=== PATIENT | male | born 1975 | race Caucasian/White ===

== ENCOUNTER 2017-08-15 22:24 | Emergency (ER) | payer OTHER ==
[~2017-08-15] VITALS: Ht 182.9 cm; Wt 111.9 kg
[2017-08-15 22:38] VITALS: BP 144/79; PULSE 97; RESP 18; TEMP 97.8; O2SAT 96
[2017-08-15 22:50] VITALS: BP 144/79; PULSE 97; RESP 18; TEMP 99.8; O2SAT 96
[2017-08-15] MEDS ORDERED: METF850T PO (23:02)
[2017-08-15] MEDS ORDERED: LISI-515 PO (23:02)
[2017-08-15] MEDS ORDERED: KETOROLAC TROMETHAMINE 60 MG/2 ML (IM) VIAL IM ONE (23:30)
[2017-08-15] MEDS ORDERED: oxyCODONE/ACETAMINOPHEN 5 MG/325 MG TAB PO ONE (23:30)
[2017-08-15] MEDS ORDERED: DEXAMETHASONE SOD PHOS 20 MG/5 ML VIAL IM ONE (23:30)
[2017-08-15 23:50] VITALS: BP 148/82; PULSE 99; RESP 18; O2SAT 96
[2017-08-16] MEDS ORDERED: PERC5TAB12 PO (00:20)
[2017-08-16] MEDS ORDERED: IBUP-232 PO (00:20)
[2017-08-16] MEDS ORDERED: MEDR4PAK PO (00:20)
--- NOTE | 2017-08-16 00:20 | PD ---
HPI Chief Complaint: Musculoskeletal Complaint Time Seen by Provider: 23:15 Travel History International Travel<30 days: No Contact w/Intl Traveler<30days: No Traveled to known affect area: No History of Present Illness HPI Patient is a 41 year old male who presents to the ER with complaints of low back pain. Patient reports that he was lifting heavy boxes at work this morning when he ended up hurting his low back. Reports that he is unsure if he pulled a muscle or has any other injuries. Patient reports that he has been having pain with ambulation due to this pain. He did work all day after his accident. Patient denies any incontinence of urine or bowel, denies any saddle anesthesia. PFSH Past Medical History Cardiovascular Problems: Yes (HTN) Diabetes: Yes Patient Takes Glucophage: Yes Medical other: Yes (Hernia, unknown if inguinal or hiatal) Influenza Vaccination: No Past Surgical History Cholecystectomy: Yes Social History Alcohol Use: Yes (Occasional) Tobacco Use: Yes (1ppd) Substance Use: No Allergies-Medications (Allergen,Severity, Reaction): Coded Allergies: No Known Allergies (Unverified , 08/15/17) Reported Meds & Prescriptions Reported Meds & Active Scripts Active Ibuprofen 600 Mg Tab 600 Mg PO Q6H PRN Percocet (Oxycodone-Acetaminophen) 5-325 mg Tab 1 Tab PO Q6H PRN Medrol Dosepak (Methylprednisolone) 4 Mg Dspk 4 Mg PO DIRECTED Per Pharmacist direction Reported Metformin (Metformin HCl) 850 Mg Tab 850 Mg PO BIDPC Lisinopril 20 Mg Tab 20 Mg PO DAILY Review of Systems General / Constitutional: No: Fever Eyes: No: Visual changes HENT: No: Headaches Cardiovascular: No: Chest Pain or Discomfort Respiratory: No: Shortness of Breath Gastrointestinal: No: Abdominal Pain, Changes in Bowel Habits Genitourinary: No: Dysuria Musculoskeletal: Positive: Pain (low back pain) Skin: No Rash Neurologic: No: Weakness Psychiatric: No: Depression Endocrine: No: Polydipsia Hematologic/Lymphatic: No: Easy Bruising Physical Exam Narrative GENERAL: Well-nourished, well-developed patient. SKIN: Focused skin assessment warm/dry. HEAD: Normocephalic. EYES: No scleral icterus. No injection or drainage. NECK: Supple, trachea midline. No JVD or lymphadenopathy. CARDIOVASCULAR: Regular rate and rhythm without murmurs, gallops, or rubs. RESPIRATORY: Breath sounds equal bilaterally. No accessory muscle use. GASTROINTESTINAL: Abdomen soft, non-tender, nondistended. MUSCULOSKELETAL: No cyanosis, or edema. Patient with lumbar paraspinal tenderness b/l BACK: Nontender without obvious deformity. No CVA tenderness. Data Data Last Documented VS Vital Signs Date Time Temp Pulse Resp B/P (MAP) Pulse Ox O2 Delivery O2 Flow Rate FiO2 08/15/17 22:54 18 08/15/17 22:50 99.8 97 144/79 (100) [address] Lumb Spine W/O Contrast (08/15/17 ) Dexamethasone Inj (Decadron Inj) (08/15/17 23:30) Oxycodone-Acetamin 5-325 Mg (Percocet (08/15/17 23:30) Ketorolac Inj (Toradol Inj) (08/15/17 23:30) MDM Medical Decision Making Medical Screen Exam Complete: Yes Emergency Medical Condition: Yes Medical Record Reviewed: Yes Interpretation(s) Vital Signs Date Time Temp Pulse Resp B/P (MAP) Pulse Ox O2 Delivery O2 Flow Rate FiO2 08/15/17 22:54 18 08/15/17 22:50 99.8 97 18 144/79 (100) 96 08/15/17 22:38 97.8 97 18 144/79 (100) 96 Differential Diagnosis slipped disc, muscle strain, spinal stenosis, degenerative disc disease, osteoarthritis, disc herniation Narrative Course CT of the lumbar spine was ordered IM Toradol, IM dexamethasone and oral dose of Percocet ordered CT of lumbar spine with no acute findings. I reviewed all studies as well as all findings with patient in detail. He will follow up with his pcp and will return to the ER as needed Diagnosis Primary Impression: Low back pain Qualified Codes: M54.40 - Lumbago with sciatica, unspecified side Patient Instructions: General Instructions, Narcotic given in the ED Additional Instructions: Please provide patient with a copy of their lab work and studies at discharge* * Please follow up with your primary care doctor in 2-3 days Return to the ER if symptoms worsen or progress Return to the ER as needed Please do not drive or operate heavy machinery while taking narcotic pain medications Med/Other Pt SpecificInfo: Prescription(s) given Scripts Ibuprofen (Ibuprofen) 600 Mg Tab 600 MG PO Q6H Y for Pain/Inflammation, #40 TAB 0 Refills Prov: Glenis Anderson DO 08/16/17 Oxycodone-Acetaminophen (Percocet) 5-325 mg Tab 1 TAB PO Q6H Y for PAIN, #12 TAB 0 Refills Prov: Glenis Anderson DO 08/16/17 Methylprednisolone Dosepak (Medrol Dosepak) 4 Mg Dspk 4 MG PO DIRECTED, #1 DSPK 0 Refills Per Pharmacist direction Prov: Glenis Anderson DO 08/16/17 Disposition: 01 DISCHARGE HOME Condition: Stable Glenis Anderson DO Aug 16, 2017 00:20
--- NOTE | 2017-08-16 00:35 | RADRPT ---
EXAM DATE/TIME: 08/15/2017 23:57 [facility] COMPARISON: No previous studies available for comparison. INDICATIONS : Low back pain from lifting boxes. RADIATION DOSE: 39.79 CTDIvol (mGy) MEDICAL HISTORY : Hypertension. SURGICAL HISTORY : Cholecystectomy. ENCOUNTER: Initial ACUITY: 1 day PAIN SCALE: 10/10 LOCATION: low back TECHNIQUE: Volumetric scanning of the lumbar spine was performed. Multiplanar reconstructions in the sagittal, coronal and oblique axial planes were performed. Using automated exposure control and adjustment of the mA and/or kV according to patient size, radiation dose was kept as low as reasonably achievable t o obtain optimal diagnostic quality images. DICOM format image data is available electronically for review and comparison. FINDINGS: VERTEBRAE: Normal vertebral body height. ALIGNMENT: No evidence of subluxation. A 1.4 cm fat-containing lesion involving the right adrenal gland. T12-L1: The thecal sac has a normal diameter. No evidence of disc bulge or protrusion. The neural foramina are patent bilaterally. L1-L2: The thecal sac has a normal diameter. No evidence of disc bulge or protrusion. The neural foramina are patent bilaterally. L2-L3: The thecal sac has a normal diameter. No evidence of disc bulge or protrusion. The neural foramina are patent bilaterally. L3-L4: The thecal sac has a normal diameter. No evidence of disc bulge or protrusion. The neural foramina are patent bilaterally. L4-L5: The thecal sac has a normal diameter. No evidence of disc bulge or protrusion. The neural foramina are patent bilaterally. L5-S1: The thecal sac has a normal diameter. No evidence of disc bulge or protrusion. The neural foramina are patent bilaterally. CONCLUSION: 1. Unremarkable exam. 2. 14 mm lipid rich right adrenal gland adenoma. Talat Bautista Jr., MD on August 16, 2017 at 0:28 Board Certified Radiologist. This report was verified electronically.
[2017-08-16 00:50] VITALS: BP 137/77
== END 2017-08-16 00:55 | disposition home or self-care (01) ==
LOC: PHED 22:24
DX: M54.5 Low back pain (principal); D35.01 Benign neoplasm of right adrenal gland; I10 Essential (primary) hypertension; E11.9 Type 2 diabetes mellitus without complications; F17.200 Nicotine dependence, unspecified, uncomplicated; Z79.899 Other long term (current) drug therapy
CPT/HCPCS: 72131; 96372; 99283; J1100; J1885

== ENCOUNTER 2017-08-19 17:04 | Emergency (ER) | payer OTHER ==
[~2017-08-19] VITALS: Ht 182.9 cm; Wt 111.5 kg
[~2017-08-19 17:04] MED LIST: IBUP-232 PO; LISI-515 PO; MEDR4PAK PO; METF850T PO; PERC5TAB12 PO
[2017-08-19 17:06] VITALS: BP 166/93; PULSE 86; RESP 16; TEMP 97.6; O2SAT 96
--- NOTE | 2017-08-19 18:04 | PD ---
HPI Chief Complaint: Back/ Neck Pain or Injury Time Seen by Provider: 17:33 Travel History International Travel<30 days: No Contact w/Intl Traveler<30days: No Traveled to known affect area: No History of Present Illness HPI 41-year-old male presents emergency department complaining of back pain that has been persistent for 3 days. Patient states that he presented to the emergency department for evaluation and was given multiple medications however, feels that he needs medication for muscle spasms. Says he try to go back to work today however, he was unable to because of the pain. He describes his pain as a turn and twist injury to his back while at work. Patient states that he was putting a box up when he turned and felt as if he twisted his back. Patient says that he has occasional radiation of pain down his left thigh however he points to his upper lumbar paraspinous muscular area for pain. Patient states that the pain is moderate in severity, worse with movement. Says the pain is constant, sharp. Denies fever, chills, loss of bowel or bladder function, saddle anesthesia, significant weakness, history of IV drug use. Denies any other inciting events. PFSH Past Medical History Cardiovascular Problems: Yes (HTN) Diabetes: Yes Patient Takes Glucophage: Yes Diminished Hearing: No Hypertension: Yes Tetanus Vaccination: Unknown Past Surgical History Cholecystectomy: Yes Social History Alcohol Use: Yes (Occasional) Tobacco Use: Yes (1ppd) Substance Use: No Allergies-Medications (Allergen,Severity, Reaction): Coded Allergies: No Known Allergies (Unverified , 08/19/17) Reported Meds & Prescriptions Reported Meds & Active Scripts Active Ibuprofen 600 Mg Tab 600 Mg PO Q6H PRN Percocet (Oxycodone-Acetaminophen) 5-325 mg Tab 1 Tab PO Q6H PRN Medrol Dosepak (Methylprednisolone) 4 Mg Dspk 4 Mg PO DIRECTED Per Pharmacist direction Reported Metformin (Metformin HCl) 850 Mg Tab 850 Mg PO BIDPC Lisinopril 20 Mg Tab 20 Mg PO DAILY Review of Systems Except as stated in HPI: all other systems reviewed are Neg Physical Exam Narrative GENERAL: WD, WN in mild distress SKIN: Focused skin assessment warm/dry. HEAD: Atraumatic. Normocephalic. EYES: Pupils equal and round. No scleral icterus. No injection or drainage. ENT: No nasal bleeding or discharge. Mucous membranes pink and moist. NECK: Trachea midline. No JVD. CARDIOVASCULAR: Regular rate and rhythm. No murmur appreciated. RESPIRATORY: No accessory muscle use. Clear to auscultation. Breath sounds equal bilaterally. GASTROINTESTINAL: Abdomen soft, non-tender, nondistended. No CVAT MUSCULOSKELETAL: No obvious deformities. No clubbing. No cyanosis. No edema. Grade 5/5 lower extremity strength. Neurovascularly intact. BACK: No CVA tenderness. No rash. No point tenderness on palpation of the spine. Significant muscle spasm about the T12, L1 region, reproducing his pain. Entire back/paraspinous musculature tender to palpation NEUROLOGICAL: Awake and alert. No obvious cranial nerve deficits. Motor grossly within normal limits. Normal speech. PSYCHIATRIC: Appropriate mood and affect; insight and judgment normal. Data Data Last Documented VS Vital Signs Date Time Temp Pulse Resp B/P (MAP) Pulse Ox O2 Delivery O2 Flow Rate FiO2 08/19/17 17:06 97.6 86 16 166/93 (117) 96 MDM Medical Decision Making Medical Screen Exam Complete: Yes Emergency Medical Condition: Yes Differential Diagnosis Lumbago, sciatica, muscle spasms Narrative Course 41-year-old male presents emergency department complaining of back pain that has been persistent for 3 days. Patient states that he presented to the emergency department for evaluation and was given multiple medications however, feels that he needs medication for muscle spasms. Says he try to go back to work today however, he was unable to because of the pain. He describes his pain as a turn and twist injury to his back while at work. Patient states that he was putting a box up when he turned and felt as if he twisted his back. Patient says that he has occasional radiation of pain down his left thigh however he points to his upper lumbar paraspinous muscular area for pain. Patient states that the pain is moderate in severity, worse with movement. Says the pain is constant, sharp. Denies fever, chills, loss of bowel or bladder function, saddle anesthesia, significant weakness, history of IV drug use. Denies any other inciting events. Vital signs stable. The exam findings consistent with muscle spasms. Patient states that he received imaging studies multiple medications for relief however, he continues to have pain. Patient will be given a few more days off work. Eduarda for outpatient use. Advised to follow-up with primary care physician. Diagnosis Primary Impression: Muscle spasm Referrals: Orthopedist Primary Care Physician Departure Forms: Tests/Procedures, Work Release Enter return to work date: Aug 22, 2017 Additional Instructions: Perform light stretches of the lower back and legs, and alternate heat and ice packs. If you develop increased pain, weakness, fever, chills, or bowel or bladder issues, return to the ED for further treatment and evaluation. Follow up with your primary care physician in 2-3 days. Disposition: 01 DISCHARGE HOME Condition: Stable Leah Gómez Aug 19, 2017 18:04
[2017-08-19] MEDS ORDERED: ROBA500T PO (18:05)
== END 2017-08-19 18:21 | disposition home or self-care (01) ==
LOC: PHEFT 17:04
DX: M62.830 Muscle spasm of back (principal)
CPT/HCPCS: 99283

== ENCOUNTER 2017-09-07 21:37 | Emergency (ER) | payer SELFPAY ==
[~2017-09-07] VITALS: Ht 182.9 cm; Wt 115.4 kg
[~2017-09-07 21:37] MED LIST changes: +ROBA500T PO
[2017-09-07 21:49] VITALS: BP 171/83; PULSE 84; RESP 18; TEMP 98.1; O2SAT 98
[2017-09-07] MEDS ORDERED: predniSONE 50 MG TAB PO ONE (22:30)
[2017-09-07] MEDS ORDERED: KETOROLAC TROMETHAMINE 60 MG/2 ML (IM) VIAL IM ONE (22:30)
[2017-09-07] MEDS ORDERED: CYCLOBENZAPRINE HCL 10 MG TAB PO ONE (22:30)
[2017-09-07] MEDS ORDERED: PRED50 PO (22:41)
[2017-09-07] MEDS ORDERED: NAPR500T2 PO (22:41)
[2017-09-07] MEDS ORDERED: CYCL10TA PO (22:41)
--- NOTE | 2017-09-07 22:41 | PD ---
HPI Chief Complaint: Pain: Acute or Chronic Time Seen by Provider: 22:22 Travel History International Travel<30 days: No Contact w/Intl Traveler<30days: No Traveled to known affect area: No History of Present Illness HPI 41-year-old male with history of diabetes here for evaluation of right lower back pain. Patient had similar symptoms when he presented to the emergency department here on 08/15/17. At that time he had injured his back with a twisting injury while lifting heavy object while at work. He had a CT of his lumbar spine that was unremarkable. Patient was treated with anti- inflammatories and muscle relaxants, and reportedly had improvement in symptoms until 2 days ago when he had a similar type mechanism lifting a heavy object and twisting while at work, leading to his pain that he is presenting with today. Pain is moderate to severe, over his right lower back, radiates down his posterior right leg. He has paresthesias to his right leg. Pain is worse with movements and palpation. He denies fevers or chills. No urinary or bowel incontinence or retention. No saddle anesthesia. No IV drug use. No hematuria or dysuria. PFSH Past Medical History Cardiovascular Problems: Yes (HTN) Diabetes: Yes Patient Takes Glucophage: Yes Diminished Hearing: No Hypertension: Yes ?: Not Past Surgical History Cholecystectomy: Yes Social History Alcohol Use: Yes (Occasional) Tobacco Use: Yes (1ppd) Substance Use: No Allergies-Medications (Allergen,Severity, Reaction): Coded Allergies: No Known Allergies (Unverified , 09/07/17) Reported Meds & Prescriptions Reported Meds & Active Scripts Active Reported Metformin (Metformin HCl) 850 Mg Tab 850 Mg PO BIDPC Lisinopril 20 Mg Tab 20 Mg PO DAILY Review of Systems Except as stated in HPI: all other systems reviewed are Neg Physical Exam Narrative GENERAL: Well-developed, well-nourished, overweight, comfortable, no apparent distress. SKIN: Focused skin assessment warm/dry. No rash. HEAD: Atraumatic. Normocephalic. EYES: Pupils equal and round. No scleral icterus. No injection or drainage. ENT: Mucous membranes pink and moist. NECK: Trachea midline. No JVD. CARDIOVASCULAR: Regular rate and rhythm. No murmur appreciated. RESPIRATORY: No accessory muscle use. Clear to auscultation. Breath sounds equal bilaterally. GASTROINTESTINAL: Abdomen soft, non-tender, nondistended. MUSCULOSKELETAL: Significant right SI joint tenderness. Mild midline lumbar spine tenderness without step-off. All joints and extremities are without deformity, without tenderness, with normal range of motion. NEUROLOGICAL: Awake and alert. No obvious cranial nerve deficits. Motor grossly within normal limits. Normal speech. No saddle anesthesia. Normal muscle strength in flexion and extension in bilateral lower extremities at the hip, knee, and ankle joints. Great toe extension present bilaterally. Brisk patellar tendon reflexes bilaterally. PSYCHIATRIC: Appropriate mood and affect; insight and judgment normal. Data Data Last Documented VS Vital Signs Date Time Temp Pulse Resp B/P (MAP) Pulse Ox O2 Delivery O2 Flow Rate FiO2 09/07/17 21:49 98.1 84 18 171/83 (112) 98 Orders Orders Ketorolac Inj (Toradol Inj) (09/07/17 22:30) Prednisone (Deltasone) (09/07/17 22:30) Cyclobenzaprine (Flexeril) (09/07/17 22:30) MDM Medical Decision Making Medical Screen Exam Complete: Yes Emergency Medical Condition: Yes Differential Diagnosis Sciatica, lumbar strain, cord compression/cauda equina syndrome unlikely Narrative Course Vital signs show heart rate 84, blood pressure 171/83, pulse ox 90% on room air , oral temperature 98.1F. This is a 41-year-old male with right lower back pain. Patient's pain radiates down his right leg and is consistent with sciatica. He has no red flags for low back pain. No motor deficits. He has brisk patellar tendon reflexes bilaterally with great toe extension present bilaterally as well as no saddle anesthesia on clinical exam. He had a lumbar CT about a month ago for similar type pain that was read as negative exam. At this point plan is to treat the patient with anti-inflammatories and muscle relaxants. He will be discharged home with a prescription for naproxen, prednisone, and Flexeril. He recently moved here from [place] and has no local primary care physician. I will given the information to the [facility] where he can follow-up with for further management. He was advised on when to return to the emergency department. He verbalizes understanding and agreement with plan. Diagnosis Primary Impression: Low back pain Qualified Codes: M54.41 - Lumbago with sciatica, right side Referrals: [facility] 3 days Additional Instructions: Follow-up with a primary care physician this week. Return to the emergency department for worsening symptoms or any other concerns. Scripts Cyclobenzaprine (Flexeril) 10 Mg Tab 10 MG PO TID for Muscle Spasm, #20 TAB 0 Refills Prov: Robert Tavarez MD 09/07/17 Prednisone (Prednisone) 50 Mg Tab 50 MG PO DAILY for 4 Days, #4 TAB 0 Refills Prov: Robert Tavarez MD 09/07/17 Naproxen (Naproxen) 500 Mg Tab 500 MG PO BID for 10 Days, #20 TAB 0 Refills Prov: Robert Tavarez MD 09/07/17 Disposition: 01 DISCHARGE HOME Condition: Stable Robert Tavarez MD September 07, 2017 22:41
== END 2017-09-07 22:52 | disposition home or self-care (01) ==
LOC: PHEFT 21:37
DX: M54.41 Lumbago with sciatica, right side (principal); X50.0XXA Overexertion from strenuous movement or load, initial encounter; Y99.0 Civilian activity done for income or pay; I10 Essential (primary) hypertension; E11.9 Type 2 diabetes mellitus without complications; F17.200 Nicotine dependence, unspecified, uncomplicated
CPT/HCPCS: 96372; 99283; J1885; J7512